=== PATIENT | male | born 1955 | race Caucasian/White ===

== ENCOUNTER 2021-06-20 12:44 | Emergency (ER) | payer SELFPAY ==
[2021-06-20 12:55] VITALS: BP 135/77; PULSE 72; RESP 18; TEMP 36.7; O2SAT 97; BMI 24.2
--- NOTE | 2021-06-20 13:01 | ED_ITS ---
HPI - Eye Problem General: Chief complaint: Eye Problems Stated complaint: STICK STUCK PT IN L EYE Time Seen by Provider: 06/20/21 13:01 Source: patient Mode of arrival: ambulatory Limitations: no limitations History of Present Illness: HPI Narrative: Patient is a nice 66-year-old male who presents to ED today with complaint of a left eye injury. Patient [place] branch came back and struck him in the eye. He states he did have a piece of wood material poking out from his eye. Since then he has noticed severe redness/bleeding. He has not noticed any visual changes. He chronically has poor vision secondary to macular degeneration. Patient has not had any discharge from the eye. He is rating pain currently at a 2/10. MD chief complaint: eye pain, eye redness and eye injury Onset (ago): hour(s) Onset description: sudden Duration: constant Location: left eye Eye Symptoms: redness and pain Place: street/outdoors Mechanism: direct trauma Severity: mild Associated symptoms: Reports no associated symptoms Treatments Prior to Arrival: none Related Data: Patient tetanus UTD: Yes Review of Systems Eyes: Reports: eye discomfort, eye redness and other (poss fb eye); Denies: photophobia or eye discharge Physical Exam Const: COMMON NORMALS: no acute distress, average body habitus, patient oriented x3, no limitations, healthy appearing, alert and well nourished Eye: COMMON NORMALS: Equal, round and reactive pupils present and EOMs intact bilaterally GENERAL EYE: normal light reflex VISUAL ACUITY: Yes other (OU 20/30 OD 20/50 OS 20/30) PERIORBITAL: periorbital findings normal EYELID: eyelids normal CONJUNCTIVA: Yes conjunctival abnormal (severe L subconjunctival hemorrhage) CORNEA: Yes other (pt has visualized lateral corneal abrasion) PUPIL: Yes Equal, round and reactive pupils present DIRECT OPHTHALMOSCOPY: Yes normal light reflex Neuro: COMMON NORMALS: patient oriented x3 SENSORIUM/ORIENTATION: Yes alert Course Vital Signs: Vital signs: Vital Signs Temperature 98.1 F 06/20/21 12:55 Pulse Rate 73 06/20/21 13:59 Respiratory Rate 16 06/20/21 13:59 Blood Pressure 134/76 06/20/21 13:59 Pulse Oximetry 96 06/20/21 13:59 MDM - Eye Problem MDM Narrative: Medical decision making narrative: Based on ARIELLA and physical exam findings I think patient would be best served by having a full ophthalmology exam. Patient admittedly does not have very good vision in either eye but states his left eye is his good eye thus I think appropriate and thorough evaluation is indicated. I do not see any evidence at this time for globe injury. I spoke with Yunior Ortiz PA-C at Dr. Thomas's office who is graciously willing to see patient at 3pm today. He stated there was no need at this time to complete a full eye/fluorescein exam as they would repeat evaluation from their end. Discharge Plan Discharge Patient Disposition: Home Clinical Impression: Traumatic subconjunctival hemorrhage of left eye Left corneal abrasion Qualifiers: Encounter type: initial encounter Qualified Code(s): S05.02XA - Injury of conjunctiva and corneal abrasion without foreign body, left eye, initial encounter Condition: Stable Discharge Orders: Discharge ED (Routine); Ordered 06/20/21 Ordered By: Chaya Davalos Referrals: Crow Thomas MD [Physician] - Activity Restrictions/Additional Instructions: As we discussed you have an appointment at 3:00pm with Dr. Thomas or Yunior Ortiz PA-C. Address and phone number for their office is attached. Coding Level of Care Code ED Location Worker for Ashley Cavazos
--- NOTE | 2021-06-20 13:03 | PC.NURSE ---
OU 20/30 OD 20/50 injuried eye OS 20/30 with corrective lens
[2021-06-20 13:59] VITALS: BP 134/76; PULSE 73; RESP 16; O2SAT 96
--- NOTE | 2021-06-20 14:11 | DCPLANNER ---
assistant front office manager was asked to fax patients demographic form to the office of Dr. Thomas, patient is to go to that clinic when he leaves the ER. assistant front office manager faxed patients information to the office of Dr. Thomas.
== END 2021-06-20 14:00 | disposition home or self-care (01) ==
PROVIDERS: Emergency Provider Physician Assistant
DX: S05.02XA Injury of conjunctiva and corneal abrasion without foreign body, left eye, initial encounter (principal); H11.32 Conjunctival hemorrhage, left eye; W20.8XXA Other cause of strike by thrown, projected or falling object, initial encounter
CPT/HCPCS: 99281